=== PATIENT | female | born 1990 | race Caucasian/White ===

== ENCOUNTER 2016-10-22 22:11 | Emergency (ER) | payer BC ==
[2016-10-22] MEDS ORDERED: Ketorolac 30 MG/ML SDV IVPUSH ONE (22:22)
[2016-10-22] MEDS ORDERED: Ondansetron 4 MG/2 ML SDV IVPUSH ONE (22:22)
[2016-10-22] MEDS ORDERED: Sodium Chloride 0.9% 1,000 ML IV ONE (22:22)
[2016-10-22 23:12] LABS: CHLORIDE,CL 106 mmol/L (98-110); SODIUM,NA 139 mmol/L (136-146)
[2016-10-22] MEDS ORDERED: Metoclopramide 10 MG/2 ML SDV IVPUSH ONE (23:53)
[2016-10-22] MEDS ORDERED: Simethicone 80 MG Tab.Chew PO ONE (23:53)
[2016-10-23] MEDS ORDERED: Ondansetron 4 MG Tab.DIS PO ONE (00:07)
[2016-10-23] MEDS ORDERED: Metoclopramide 5 MG Tab PO ONE (00:07)
[2016-10-23] MEDS ORDERED: Ketorolac 10 MG Tab PO ONE (00:07)
[2016-10-23] MEDS ORDERED: Simethicone 80 MG Tab.Chew ONE (00:23)
--- NOTE | 2016-10-23 00:28 | EDM.PDOC ---
ED HPI GENERAL MEDICAL PROBLEM - General Chief Complaint: Abdominal Pain Stated Complaint: LOWER ABDOMINAL PAIN Time Seen by Provider: 10/23/16 00:25 Source of Information: Reports: Patient - History of Present Illness INITIAL COMMENTS - FREE TEXT/NARRATIVE: HISTORY AND PHYSICAL: History of present illness: Patient presents with 2 days of right lower quadrant discomfort that comes and goes, her last bowel movement today she states she had small hard stool, there was some food association with her pain she rates 2 out of 10 at current she describes discomfort in the right lower quadrant as well as right upper quadrant at times No fever some intermittent nausea no vomiting chills or sweats no chest pain shortness breath headache dizziness or palpitations no urine symptoms Review of systems: As per history of present illness and below otherwise all systems reviewed and negative. Past medical history: As per history of present illness and as reviewed below otherwise noncontributory. Surgical history: As per history of present illness and as reviewed below otherwise noncontributory. Social history: No reported history of drug or alcohol abuse. Family history: As per history of present illness and as reviewed below otherwise noncontributory. Physical exam: HEENT: Atraumatic, normocephalic, pupils reactive, negative for conjunctival pallor or scleral icterus, mucous membranes moist, throat clear, neck supple, nontender, trachea midline. Lungs: Clear to auscultation, breath sounds equal bilaterally, chest nontender. Heart: S1S2, regular, negative for clicks, rubs, or JVD. Abdomen: Soft, nondistended, nontender on the left she is tender on deep palpation in the right lower quadrant however no guarding or rebound so as an obturator her negative. Negative for masses or hepatosplenomegaly. Negative for costovertebral tenderness. Pelvis: Stable nontender. Genitourinary: Deferred. Rectal: Deferred. Extremities: Atraumatic, negative for cords or calf pain. Neurovascular unremarkable. Neuro: Awake, alert, oriented. Cranial nerves II through XII unremarkable. Cerebellum unremarkable. Motor and sensory unremarkable throughout. Exam nonfocal. Diagnostics: []Lab as below Abdominal flat and upright Therapeutics: []Reglan 5 mg by mouth Toradol 10 mg by mouth Simethicone 160 mg chewable Impression: []There is a volume of stool in the ascending: Nonobstructive bowel gas pattern Colicky abdominal pain Mild constipation Definitive disposition and diagnosis as appropriate pending reevaluation and review of above. abdomen Pain Score (Numeric/FACES): 6 - Related Data Allergies Allergy/AdvReac Type Severity Reaction Status Date / Time No Known Allergies Allergy Verified 10/22/16 22:21 Home Meds: Home Meds Control 03/29/16 [History] Past Medical History - Past Health History Medical/Surgical History: Denies Medical/Surgical History HEENT History: Reports: None Cardiovascular History: Reports: None Respiratory History: Reports: None Gastrointestinal History: Reports: None Genitourinary History: Reports: None [employer] History: Reports: None Musculoskeletal History: Reports: None Neurological History: Reports: None Psychiatric History: Reports: None Endocrine/Metabolic History: Reports: None Hematologic History: Reports: None Immunologic History: Reports: None Oncologic (Cancer) History: Reports: None Dermatologic History: Reports: None - Infectious Disease History Infectious Disease History: Reports: Mononucleosis - Past Surgical History Head Surgeries/Procedures: Reports: None HEENT Surgical History: Reports: None Female Surgical History: Reports: Oophorectomy, Other (See Below) Social & Family History - Family History Family Medical History: Noncontributory - Tobacco Use Smoking Status *Q: Never Smoker - Caffeine Use Caffeine Use: Reports: Soda - Recreational Drug Use Recreational Drug Use: No ED ROS GENERAL - Review of Systems Review Of Systems: ROS reveals no pertinent complaints other than HPI. ED EXAM, GENERAL - Physical Exam Exam: See Below Course - Vital Signs Last Recorded V/S: Last Vital Signs Temp 36.9 C 10/22/16 22:22 Pulse 95 10/22/16 22:22 Resp 18 10/22/16 22:22 BP 128/79 10/22/16 22:22 Pulse Ox 97 10/22/16 22:22 - Orders/Labs/Meds Orders: Active Orders 24 hr Category Date Time Status Abdomen 2V AP Flat Upright [CR] Stat Exams 10/22/16 23:21 Taken CULTURE URINE [RM] Stat Lab 10/22/16 23:24 Uncollected Simethicone Med 10/23/16 00:23 Once 80 mg .ROUTE .STK-MED ONE Labs: Laboratory Tests 10/22/16 10/22/16 10/22/16 Range/Units 22:30 22:30 22:45 WBC 8.45 (4.0-11.0) K/uL RBC 4.38 (4.30-5.90) M/uL Hgb 13.2 (12.0-16.0) g/dL Hct 39.7 (36.0-46.0) % MCV 90.6 (80.0-98.0) fL MCH 30.1 (27.0-32.0) pg MCHC 33.2 (31.0-37.0) g/dL RDW Std Deviation 42.6 (28.0-62.0) fl RDW Coeff of Kota 13 (11.0-15.0) % Plt Count 278 (150-400) K/uL MPV 11.40 (7.40-12.00) fL Neut % (Auto) 57.1 (48.0-80.0) % Lymph % (Auto) 35.1 (16.0-40.0) % [place] % (Auto) 6.5 (0.0-15.0) % Eos % (Auto) 1.2 (0.0-7.0) % Baso % (Auto) 0.1 (0.0-1.5) % Neut # (Auto) 4.8 (1.4-5.7) K/uL Lymph # (Auto) 3.0 H (0.6-2.4) K/uL [place] # (Auto) 0.6 (0.0-0.8) K/uL Eos # (Auto) 0.1 (0.0-0.7) K/uL Baso # (Auto) 0.0 (0.0-0.1) K/uL Nucleated RBC % 0.0 /100WBC Nucleated RBCs # 0 K/uL Sodium (136-146) mmol/L Potassium (3.5-5.1) mmol/L Chloride (98-110) mmol/L Carbon Dioxide (21-31) mmol/L BUN (6.0-23.0) mg/dL Creatinine (0.6-1.5) mg/dL Est Cr Clr Drug Dosing mL/min Estimated GFR (MDRD) ml/min Glucose (60-110) mg/dL Calcium (8.8-10.8) mg/dL Total Bilirubin (0.1-1.5) mg/dL AST (5-40) IU/L ALT (8-54) IU/L Alkaline Phosphatase (40-150) Total Protein (6.0-8.0) g/dL Albumin (3.5-5.0) g/dL Globulin (2.0-3.5) g/dL Albumin/Globulin Ratio (1.3-2.8) Amylase (10-90) U/L Lipase (7-80) U/L Urine Color YELLOW Urine Appearance CLEAR Urine pH 6.0 (5.0-8.0) Ur Specific [place] <= 1.005 (1.001-1.035) Urine Protein NEGATIVE (NEGATIVE) mg/dL Urine Glucose (UA) NEGATIVE (NEGATIVE) mg/dL Urine Ketones NEGATIVE (NEGATIVE) mg/dL Urine Occult Blood NEGATIVE (NEGATIVE) Urine Nitrite NEGATIVE (NEGATIVE) Urine Bilirubin NEGATIVE (NEGATIVE) Urine Urobilinogen 0.2 (<2.0) EU/dL Ur Leukocyte Esterase TRACE (NEGATIVE) Urine RBC 0-1 (0-2/HPF) Urine WBC 0-2 (0-5/HPF) Ur Epithelial Cells FEW (NONE-FEW) Urine Bacteria FEW (NEGATIVE) Urine HCG, Qual NEGATIVE (NEGATIVE) 10/22/16 Range/Units 22:45 WBC (4.0-11.0) K/uL RBC (4.30-5.90) M/uL Hgb (12.0-16.0) g/dL Hct (36.0-46.0) % MCV (80.0-98.0) fL MCH (27.0-32.0) pg MCHC (31.0-37.0) g/dL RDW Std Deviation (28.0-62.0) fl RDW Coeff of K[place] (11.0-15.0) % Plt Count (150-400) K/uL MPV (7.40-12.00) fL Neut % (Auto) (48.0-80.0) % Lymph % (Auto) (16.0-40.0) % [place] % (Auto) (0.0-15.0) % Eos % (Auto) (0.0-7.0) % Baso % (Auto) (0.0-1.5) % Neut # (Auto) (1.4-5.7) K/uL Lymph # (Auto) (0.6-2.4) K/uL [place] # (Auto) (0.0-0.8) K/uL Eos # (Auto) (0.0-0.7) K/uL Baso # (Auto) (0.0-0.1) K/uL Nucleated RBC % /100WBC Nucleated RBCs # K/uL Sodium 139 (136-146) mmol/L Potassium 4.1 (3.5-5.1) mmol/L Chloride 106 (98-110) mmol/L Carbon Dioxide 24 (21-31) mmol/L BUN 17 (6.0-23.0) mg/dL Creatinine 0.8 (0.6-1.5) mg/dL Est Cr Clr Drug Dosing 113.32 mL/min Estimated GFR (MDRD) > 60.0 ml/min Glucose 106 (60-110) mg/dL Calcium 9.3 (8.8-10.8) mg/dL Total Bilirubin 0.2 (0.1-1.5) mg/dL AST 19 (5-40) IU/L ALT 26 (8-54) IU/L Alkaline Phosphatase 73 (40-150) Total Protein 7.2 (6.0-8.0) g/dL Albumin 3.9 (3.5-5.0) g/dL Globulin 3.3 (2.0-3.5) g/dL Albumin/Globulin Ratio 1.2 L (1.3-2.8) Amylase 76 (10-90) U/L Lipase 16 (7-80) U/L Urine Color Urine Appearance Urine pH (5.0-8.0) Ur Specific [place] (1.001-1.035) Urine Protein (NEGATIVE) mg/dL Urine Glucose (UA) (NEGATIVE) mg/dL Urine Ketones (NEGATIVE) mg/dL Urine Occult Blood (NEGATIVE) Urine Nitrite (NEGATIVE) Urine Bilirubin (NEGATIVE) Urine Urobilinogen (<2.0) EU/dL Ur Leukocyte Esterase (NEGATIVE) Urine RBC (0-2/HPF) Urine WBC (0-5/HPF) Ur Epithelial Cells (NONE-FEW) Urine Bacteria (NEGATIVE) Urine HCG, Qual (NEGATIVE) Meds: Medications Discontinued Medications Generic Name Dose Route Start Last Admin Trade Name Freq PRN Reason Stop Dose Admin Sodium Chloride 1,000 mls @ 999 mls/hr 10/22/16 22:22 10/22/16 22:50 Normal Saline IV 10/22/16 23:22 999 mls/hr STAT ONE Administration Ketorolac Tromethamine 30 mg 10/22/16 22:22 Toradol IVPUSH 10/23/16 00:06 ONETIME ONE Ketorolac Tromethamine 10 mg 10/23/16 00:07 Toradol PO 10/23/16 00:08 ONETIME ONE Metoclopramide HCl 5 mg 10/22/16 23:53 Reglan IVPUSH 10/22/16 23:54 ONETIME ONE Metoclopramide HCl 5 mg 10/23/16 00:07 Reglan PO 10/23/16 00:08 ONETIME ONE Ondansetron HCl 8 mg 10/22/16 22:22 Zofran IVPUSH 10/22/16 22:23 ONETIME ONE Ondansetron HCl 4 mg 10/23/16 00:07 10/23/16 00:21 Zofran Odt PO 10/23/16 00:08 4 mg ONETIME ONE Administration Simethicone 160 mg 10/22/16 23:53 10/23/16 00:24 Simethicone PO 10/22/16 23:54 160 mg ONETIME ONE Administration Simethicone Confirm 10/23/16 00:23 Simethicone Administered 10/23/16 00:24 Dose 80 mg .ROUTE .STK-MED ONE Departure - Departure Time of Disposition: 00:27 Disposition: Home, Self-Care 01 Condition: Good Clinical Impression: Abdominal pain - Discharge Information Forms: ED Department Discharge Additional Instructions: Consider MiraLAX by mouth daily as needed Prescription for Reglan is provided Gas-X may benefit Return if symptoms persist or worsen or new concerning symptoms develop Follow-up with primary care in 2 weeks sooner as needed The following information is given to patients seen in the emergency department who are being discharged to home. This information is to outline your options for follow-up care. We provide all patients seen in our emergency department with a follow-up referral. The need for follow-up, as well as the timing and circumstances, are variable depending upon the specifics of your emergency department visit. If you don't have a primary care physician on staff, we will provide you with a referral. We always advise you to contact your personal physician following an emergency department visit to inform them of the circumstance of the visit and for follow-up with them and/or the need for any referrals to a consulting specialist. The emergency department will also refer you to a specialist when appropriate. This referral assures that you have the opportunity for follow-up care with a specialist. All of these measure are taken in an effort to provide you with optimal care, which includes your follow-up. Under all circumstances we always encourage you to contact your private physician who remains a resource for coordinating your care. When calling for follow-up care, please make the office aware that this follow-up is from your recent emergency room visit. If for any reason you are refused follow-up, please contact the [facility] emergency department at and asked to speak to the emergency department charge nurse. - My Orders Last 24 Hours: My Active Orders 10/22/16 23:21 Abdomen 2V AP Flat Upright [CR] Stat 10/22/16 23:24 CULTURE URINE [RM] Stat - Assessment/Plan Last 24 Hours: My Active Orders 10/22/16 23:21 Abdomen 2V AP Flat Upright [CR] Stat 10/22/16 23:24 CULTURE URINE [RM] Stat
[2016-10-23 01:58] VITALS: BP 121/74
--- NOTE | 2016-10-23 17:08 | CR ---
EXAM DATE: 10/22/16 PATIENT'S AGE: 26 Patient: SHANTE BINGHAM Facility: [place], [place] Site . Site : 1990 Study: XRay Abdomen [id number]/[id number] 11:48:10 PM Ordering Physician: Brenda Davidson Final Report: INDICATION: Abdominal pain. TECHNIQUE: Upright and supine views of the abdomen, total of 4 images. IMPRESSION : The bowel gas pattern is nonobstructive. Upright exam shows no free air under the hemidiaphragms. Mild volume of colonic stool in the ascending colon. No pathologic abdominal calcifications. Dictated by Chava Gr MD @ 10/23/2016 12:20:08 AM Dictated by: Chava Gr MD @ 10/23/2016 00:20:14 (Electronic Signature) Report Signed by Proxy. [email or web address]
== END 2016-10-23 00:47 | disposition home or self-care (01) ==
LOC: MW.ED 22:11
DX: K59.00 Constipation, unspecified (principal)
CPT/HCPCS: 36415; 74020; 80053; 81001; 81025; 82150; 83690; 85025; 87086; 99284; A9270; J7040; 99282